=== PATIENT | male | born 1960 | race Caucasian/White ===

== ENCOUNTER 2016-12-14 16:35 | Emergency (ER) | payer MEDICAID ==
--- NOTE | 2016-12-14 17:39 | EDM.PDOC ---
ED HPI GENERAL MEDICAL PROBLEM - General Chief Complaint: Abdominal Pain Stated Complaint: STOMACH PAIN Time Seen by Provider: 12/14/16 17:39 Source of Information: Reports: Patient History Limitations: Reports: No Limitations - History of Present Illness INITIAL COMMENTS - FREE TEXT/NARRATIVE: 56 yo M with multiple medical issues including gbut not limited to Chronic/ ongoing smoking history -- 2 PPD, CHF, Obesity, COPD amongst other medical problems listed in his chart. Presents to the ER with h/o Epigastric/Upper abdominal pain that has been ongoing for the past 2 weeks. Reports that he had a single episode of upper abdominal pain that resolved without any intervention. Never went to the ER for evaluation. Current symptom started today around noon. Sudden onset epigastric pain that he rates as 9/10 with no obvious aggravating or relieving factors. Reports associated SOB, Fatigue and Feeling unwell. No vomiting, diarrhea or fever. Presented to the ER on account of worsening symptoms. Onset: Today, Sudden Onset Date: 12/14/16 Onset Time: 12:00 Duration: Hour(s): (started about 6 hours ago), Getting Worse, Heavy Location: Reports: Abdomen Severity: Severe Worsens with: Reports: Movement Associated Symptoms: Reports: Shortness of Breath, Weakness Mid- upper abdomen Pain Score (Numeric/FACES): 7 - Related Data Allergies Allergy/AdvReac Type Severity Reaction Status Date / Time No Known Allergies Allergy Verified 12/14/16 17:54 Home Meds: Home Meds Albuterol [Ventolin HFA] 2 puff .XX BID 12/14/16 [History] Albuterol/Ipratropium [Combivent Respimat] 1 puff BEDTIME 12/14/16 [History] Aspirin [Adult Low Dose Aspirin EC] 81 mg PO DAILY 12/14/16 [History] Lisinopril [Zestril] 10 mg PO DAILY 12/14/16 [History] Mometasone/Formoterol [Dulera 200-5 MCG] 1 puff BID 12/14/16 [History] Potassium Chloride [Klor-Con 10] 30 meq PO DAILY 12/14/16 [History] Simvastatin [Zocor] 40 mg PO BEDTIME 12/14/16 [History] Spironolactone [Aldactone] 25 mg PO DAILY 12/14/16 [History] Tiotropium [Spiriva] 1 inhalation INH DAILY 12/14/16 [History] Torsemide 40 mg PO DAILY 12/14/16 [History] metFORMIN HCl [Metformin HCl ER] 1,000 mg PO BID 12/14/16 [History] Past Medical History Cardiovascular History: Reports: Heart Failure, High Cholesterol, Hypertension, Other (See Below) Other Cardiovascular History: heart failure from tooth infection Respiratory History: Reports: COPD, Pneumonia, Recurrent Gastrointestinal History: Reports: Cholelithiasis, GERD Genitourinary History: Reports: Renal Calculus Musculoskeletal History: Reports: Fracture Other Musculoskeletal History: L thumb, R ankle fx Neurological History: Reports: Neuropathy, Diabetic Endocrine/Metabolic History: Reports: Diabetes, Type II, Obesity/BMI 30+ - Infectious Disease History Infectious Disease History: Reports: Chicken Pox - Past Surgical History GI Surgical History: Reports: Appendectomy Social & Family History - Family History Family Medical History: Noncontributory - Tobacco Use Smoking Status *Q: Current Every Day Smoker Years of Tobacco use: 33 Packs/Tins Daily: 2 - Caffeine Use Caffeine Use: Reports: Coffee, Soda, Tea - Recreational Drug Use Recreational Drug Use: No ED ROS GENERAL - Review of Systems Review Of Systems: ROS reveals no pertinent complaints other than HPI. ED EXAM, GI/ABD - Physical Exam Exam: See Below Exam Limited By: No Limitations General Appearance: Alert, WD/WN, No Apparent Distress Eyes: Bilateral: EOMI Ears: Normal External Exam, Normal Canal, Hearing Grossly Normal, Normal TMs Nose: Normal Inspection, Normal Mucosa Throat/Mouth: Normal Inspection, Normal Lips, Normal Teeth, Normal Oropharynx, Normal Voice Head: Atraumatic, Normocephalic Neck: Normal Inspection, Supple, Non-Tender, Full Range of Motion Respiratory/Chest: No Respiratory Distress, Lungs Clear Cardiovascular: Normal Peripheral Pulses, Regular Rate, Rhythm, No Edema, No Gallop, No JVD, No Murmur GI/Abdominal: Normal Bowel Sounds, Soft, Tenderness, Other (upper abdominal tenderness) (Male) Exam: No Hernia, Normal Inspection, Normal Prostate Back Exam: Normal Inspection, Full Range of Motion Neurological: Alert, Oriented, CN II-XII Intact, Normal Cognition Psychiatric: Normal Affect, Normal Mood Skin Exam: Warm, Intact, Normal Color, No Rash Lymphatic: No Adenopathy Front/Back Body Diagram: 1 - Epigastric tenderness Course - Vital Signs Last Recorded V/S: Last Vital Signs Temp 36.4 C 12/14/16 16:54 Pulse 64 12/14/16 18:00 Resp 18 12/14/16 18:00 BP 106/58 L 12/14/16 18:00 Pulse Ox 94 L 12/14/16 18:00 - Orders/Labs/Meds Orders: Active Orders 24 hr Category Date Time Status EKG Documentation Completion [RC] ASDIRECTED Care 12/14/16 17:49 Active Chest Abdomen Pelvis w Cont [CT] Stat Exams 12/14/16 17:47 Taken Sodium Chloride 0.9% [Normal Saline] 1,000 ml Med 12/14/16 18:00 Active IV ASDIRECTED EKG 12 Lead [EK] Routine Ther 12/14/16 17:48 Ordered Medication Orders Sodium Chloride (Normal Saline) 1,000 mls @ 75 mls/hr IV ASDIRECTED MUMTAZ Last Admin: 12/14/16 18:18 Dose: 75 mls/hr Labs: Laboratory Tests 12/14/16 12/14/16 12/14/16 Range/Units 17:55 17:55 17:55 WBC 17.4 H (4.5-12.0) X10-3/uL RBC 5.81 H (4.30-5.75) x10(6)uL Hgb 16.6 H (11.5-15.5) g/dL Hct 50.6 (30.0-51.3) % MCV 87.1 (80-96) fL MCH 28.5 (27.7-33.6) pg MCHC 32.8 (32.2-35.4) g/dL RDW 12.3 (11.5-15.5) % Plt Count 337 (125-369) X10(3)uL Sodium 133 L (135-145) mmol/L Potassium 4.6 (3.5-5.3) mmol/L Chloride 99 L (100-110) mmol/L Carbon Dioxide 25 (23-29) mmol/L BUN 13 (5-20) mg/dL Creatinine 0.9 (0.6-1.3) mg/dL Est Cr Clr Drug Dosing 110.84 mL/min Estimated GFR (MDRD) > 60 (>60) BUN/Creatinine Ratio 14.4 (9-20) Glucose 194 H (80-116) mg/dL Lactic Acid (0.5-2.2) mmol/L Calcium 9.6 (8.6-10.2) mg/dL Total Bilirubin 0.5 (0.1-1.3) mg/dL AST 25 (5-27) IU/L ALT 36 H (14-26) IU/L Alkaline Phosphatase 99 (56-112) IU/L Troponin I < 0.01 L (0.02-0.06) NG/ML C-Reactive Protein (0.0-1.0) mg/dL B-Natriuretic Peptide (0-100) pg/mL Total Protein 8.0 (6.0-8.0) g/dL Albumin 4.3 (3.5-5.2) g/dL Globulin 3.7 g/dL Albumin/Globulin Ratio 1.2 Amylase (28-100) U/L Lipase 12/14/16 12/14/16 12/14/16 Range/Units 17:55 17:55 17:55 WBC (4.5-12.0) X10-3/uL RBC (4.30-5.75) x10(6)uL Hgb (11.5-15.5) g/dL Hct (30.0-51.3) % MCV (80-96) fL MCH (27.7-33.6) pg MCHC (32.2-35.4) g/dL RDW (11.5-15.5) % Plt Count (125-369) X10(3)uL Sodium (135-145) mmol/L Potassium (3.5-5.3) mmol/L Chloride (100-110) mmol/L Carbon Dioxide (23-29) mmol/L BUN (5-20) mg/dL Creatinine (0.6-1.3) mg/dL Est Cr Clr Drug Dosing mL/min Estimated GFR (MDRD) (>60) BUN/Creatinine Ratio (9-20) Glucose (80-116) mg/dL Lactic Acid (0.5-2.2) mmol/L Calcium (8.6-10.2) mg/dL Total Bilirubin (0.1-1.3) mg/dL AST (5-27) IU/L ALT (14-26) IU/L Alkaline Phosphatase (56-112) IU/L Troponin I (0.02-0.06) NG/ML C-Reactive Protein (0.0-1.0) mg/dL B-Natriuretic Peptide 64 (0-100) pg/mL Total Protein (6.0-8.0) g/dL Albumin (3.5-5.2) g/dL Globulin g/dL Albumin/Globulin Ratio Amylase 570 H* (28-100) U/L Lipase 3018 12/14/16 12/14/16 Range/Units 17:55 17:55 WBC (4.5-12.0) X10-3/uL RBC (4.30-5.75) x10(6)uL Hgb (11.5-15.5) g/dL Hct (30.0-51.3) % MCV (80-96) fL MCH (27.7-33.6) pg MCHC (32.2-35.4) g/dL RDW (11.5-15.5) % Plt Count (125-369) X10(3)uL Sodium (135-145) mmol/L Potassium (3.5-5.3) mmol/L Chloride (100-110) mmol/L Carbon Dioxide (23-29) mmol/L BUN (5-20) mg/dL Creatinine (0.6-1.3) mg/dL Est Cr Clr Drug Dosing mL/min Estimated GFR (MDRD) (>60) BUN/Creatinine Ratio (9-20) Glucose (80-116) mg/dL Lactic Acid 2.3 H (0.5-2.2) mmol/L Calcium (8.6-10.2) mg/dL Total Bilirubin (0.1-1.3) mg/dL AST (5-27) IU/L ALT (14-26) IU/L Alkaline Phosphatase (56-112) IU/L Troponin I (0.02-0.06) NG/ML C-Reactive Protein 1.4 H (0.0-1.0) mg/dL B-Natriuretic Peptide (0-100) pg/mL Total Protein (6.0-8.0) g/dL Albumin (3.5-5.2) g/dL Globulin g/dL Albumin/Globulin Ratio Amylase (28-100) U/L Lipase Meds: Medications Generic Name Dose Route Start Last Admin Trade Name Lolly PRN Reason Stop Dose Admin Sodium Chloride 1,000 mls @ 75 mls/hr 12/14/16 18:00 12/14/16 18:18 Normal Saline IV 75 mls/hr ASDIRECTED MUMTAZ Administration Discontinued Medications Generic Name Dose Route Start Last Admin Trade Name Lolly PRN Reason Stop Dose Admin Iopamidol 150 ml 12/14/16 18:18 12/14/16 19:15 Isovue-370 (76%) IV 12/14/16 18:19 124 ml ONETIME ONE Administration Morphine Sulfate 4 mg 12/14/16 19:16 12/14/16 19:25 Morphine IVPUSH 12/14/16 19:17 4 mg ONETIME ONE Administration Ondansetron HCl 4 mg 12/14/16 17:49 12/14/16 18:21 Zofran IVPUSH 12/14/16 17:50 4 mg ONETIME ONE Administration - Radiology Interpretation CT Results Date: 12/14/16 (Acute pancreatitis, Soft tissue Lesion esophagus suspicious for malignancy) Departure - Departure Time of Disposition: 20:51 Disposition: DC/Tfer to Other 70 Clinical Impression: Esophageal lesion Pancreatitis, acute Qualifiers: Pancreatitis type: other Acute pancreatitis complication: unspecified Qualified Code(s): K85.80 - Other acute pancreatitis without necrosis or infection Abdominal pain Qualifiers: Abdominal location: upper abdomen, unspecified Qualified Code(s): R10.10 - Upper abdominal pain, unspecified Pancreatitis Qualifiers: Chronicity: acute Pancreatitis type: other Acute pancreatitis complication: unspecified Qualified Code(s): K85.80 - Other acute pancreatitis without necrosis or infection - Discharge Information Instructions: Acute Pancreatitis Referrals: PCP,None [Primary Care Provider] - Forms: ED Department Discharge, Interfacility Transfer EMTALA - Problem List & Annotations (1) Abdominal pain SNOMED Code(s): 17756695 Code(s): R10.9 - UNSPECIFIED ABDOMINAL PAIN Status: Acute Current Visit: Yes Qualifiers: Abdominal location: upper abdomen, unspecified Qualified Code(s): R10.10 - Upper abdominal pain, unspecified (2) Esophageal lesion SNOMED Code(s): 602481229 Code(s): K22.9 - DISEASE OF ESOPHAGUS, UNSPECIFIED Status: Acute Current Visit: Yes (3) Pancreatitis SNOMED Code(s): 61551589 Code(s): K85.90 - ACUTE PANCREATITIS WITHOUT NECROSIS OR INFECTION, UNSP Status: Acute Current Visit: Yes Qualifiers: Chronicity: acute Pancreatitis type: other Acute pancreatitis complication: unspecified Qualified Code(s): K85.80 - Other acute pancreatitis without necrosis or infection (4) Pancreatitis, acute SNOMED Code(s): 478114713 Code(s): K85.90 - ACUTE PANCREATITIS WITHOUT NECROSIS OR INFECTION, UNSP Status: Acute Current Visit: Yes Qualifiers: Pancreatitis type: other Acute pancreatitis complication: unspecified Qualified Code(s): K85.80 - Other acute pancreatitis without necrosis or infection - Problem List Review Problem List Initiated/Reviewed/Updated: Yes - My Orders Last 24 Hours: My Active Orders 12/14/16 17:47 Chest Abdomen Pelvis w Cont [CT] Stat 12/14/16 17:48 EKG 12 Lead [EK] Routine 12/14/16 17:49 EKG Documentation Completion [RC] ASDIRECTED 12/14/16 18:00 Sodium Chloride 0.9% [Normal Saline] 1,000 ml IV ASDIRECTED - Assessment/Plan Last 24 Hours: My Active Orders 12/14/16 17:47 Chest Abdomen Pelvis w Cont [CT] Stat 12/14/16 17:48 EKG 12 Lead [EK] Routine 12/14/16 17:49 EKG Documentation Completion [RC] ASDIRECTED 12/14/16 18:00 Sodium Chloride 0.9% [Normal Saline] 1,000 ml IV ASDIRECTED
[2016-12-14] MEDS ORDERED: Ondansetron 4 MG/2 ML SDV IVPUSH ONE (17:49)
[2016-12-14] MEDS ORDERED: Sodium Chloride 0.9% 1,000 ML IV SCH (18:00)
[2016-12-14] MEDS ORDERED: Iopamidol 755 MG/ML 150 ML Bottle IV ONE (18:18)
[2016-12-14] MEDS ORDERED: Morphine 4 MG/ML Syringe IVPUSH ONE (19:16)
[2016-12-14 21:06] VITALS: BP 110/58
== END 2016-12-14 21:00 | disposition other institution (70) ==
LOC: FB.ED 16:35
DX: K85.80 Other acute pancreatitis without necrosis or infection (principal); K22.8 Other specified diseases of esophagus; E78.00 Pure hypercholesterolemia, unspecified; E66.9 Obesity, unspecified; E11.9 Type 2 diabetes mellitus without complications; J44.9 Chronic obstructive pulmonary disease, unspecified; I13.0 Hypertensive heart and chronic kidney disease with heart failure and stage 1 through stage 4 chronic kidney disease, or unspecified chronic kidney disease; I50.9 Heart failure, unspecified; F17.210 Nicotine dependence, cigarettes, uncomplicated; Z87.01 Personal history of pneumonia (recurrent); Z90.49 Acquired absence of other specified parts of digestive tract; Z79.899 Other long term (current) drug therapy
CPT/HCPCS: 36415; 71260; 74177; 80053; 82150; 83605; 83690; 83880; 84484; 85027; 86140; 93005; 96361; 96374; 96375; 99284; J2270; J2405; J7040; Q9967